=== PATIENT | female | born 1980 | race African-American/Black ===

== ENCOUNTER 2022-10-31 19:30 | Emergency (ER) | payer MEDICAID, OTHER ==
[~2022-10-31] VITALS: Ht 172.7 cm; Wt 89.0 kg
[~2022-10-31 19:30] MED LIST: DICL50TA9 PO; FLEXERIL; HYDR-4005 PO; NORCO; OMEP20CA14 PO; TOPUD
[2022-10-31 19:36] VITALS: BP 114/72
== END 2022-10-31 22:56 | disposition left against medical advice (07) ==
LOC: ER 19:30
DX: R53.1 Weakness (principal); Z53.21 Procedure and treatment not carried out due to patient leaving prior to being seen by health care provider
CPT/HCPCS: 99281

== ENCOUNTER 2023-01-31 08:07 | Emergency (ER) | payer OTHER ==
[~2023-01-31] VITALS: Ht 180.3 cm; Wt 88.6 kg
[2023-01-31 08:25] VITALS: BP 132/84; RESP 18; O2SAT 100
[2023-01-31 08:30] VITALS: PULSE 104
[2023-01-31 08:52] LABS: CHLORIDE 109 mEq/L (98-107)
[2023-01-31 08:53] LABS: BASOPHILS % 1.5 % (0.0-2.0); EOSINOPHILS % 4.6 % (0.0-5.0); HEMATOCRIT. 39.9 % (36.0-48.0); HEMOGLOBIN. 13.3 g/dL (12.0-16.0); LYMPHOCYTES % 38.8 % (20.0-50.0); MEAN CORPUSCULAR HEMOGLOBIN 28.5 pg (28.0-32.0); MEAN CORPUSCULAR VOLUME 85.4 fL (81.0-99.0); MEAN PLATELET VOLUME 7.1 fl (7.4-10.4); MONOCYTES % 9.7 % (2.0-8.0); NEUTROPHILS % 45.4 % (40.0-76.0); PLATELET 372 x1000/uL (130-400); RED BLOOD CELL COUNT 4.67 mill/uL (4.2-5.4); RED CELL DISTRIBUTION WIDTH 15.6 % (11.6-14.6)
[2023-01-31 15:13] LABS: BASOPHILS % 1.2 % (0.0-2.0); EOSINOPHILS % 3.5 % (0.0-5.0); HEMATOCRIT. 38.3 % (36.0-48.0); HEMOGLOBIN. 12.8 g/dL (12.0-16.0); LYMPHOCYTES % 46.7 % (20.0-50.0); MEAN CORPUSCULAR HEMOGLOBIN 28.8 pg (28.0-32.0); MEAN CORPUSCULAR VOLUME 86.4 fL (81.0-99.0); MEAN PLATELET VOLUME 6.9 fl (7.4-10.4); MONOCYTES % 8.1 % (2.0-8.0); NEUTROPHILS % 40.5 % (40.0-76.0); PLATELET 353 x1000/uL (130-400); RED BLOOD CELL COUNT 4.43 mill/uL (4.2-5.4); RED CELL DISTRIBUTION WIDTH 15.9 % (11.6-14.6)
[2023-01-31] MEDS ORDERED: PANTOPRAZOLE 40MG DR TABLET PO ONE (15:15)
[2023-01-31] MEDS ORDERED: MAGNESIUM/ALUMINUM HYDROXIDE/SIMETHICONE 30ML UDC PO ONE (15:15)
[2023-01-31 15:33] LABS: CHLORIDE 108 mEq/L (98-107)
[2023-01-31] MEDS ORDERED: ACETAMINOPHEN 325MG TABLET PO ONE (17:00)
[2023-01-31] MEDS ORDERED: ACET-2708 MT (17:25)
[2023-01-31] MEDS ORDERED: PANT40SU MT (17:25)
[2023-01-31] MEDS ORDERED: ACETAMINOPHEN 325MG TABLET PO NR (17:45)
[2023-01-31] MEDS ORDERED: PANTOPRAZOLE 40MG DR TABLET PO NR (17:45)
[2023-01-31] MEDS ORDERED: MAGNESIUM/ALUMINUM HYDROXIDE/SIMETHICONE 30ML UDC PO NR (17:45)
[2023-01-31 17:55] VITALS: TEMP 98.7
== END 2023-01-31 17:58 | disposition home or self-care (01) ==
LOC: ER 08:39
DX: K21.9 Gastro-esophageal reflux disease without esophagitis (principal); R07.89 Other chest pain; Z98.51 Tubal ligation status; Z79.899 Other long term (current) drug therapy
CPT/HCPCS: 36415; 71045; 80053; 83880; 84484; 85025; 85379; 93005; 99285

== ENCOUNTER 2025-07-11 13:19 | Emergency (ER) | payer MEDICAID, OTHER ==
[~2025-07-11] VITALS: Ht 180.3 cm; Wt 108.0 kg
[~2025-07-11 13:19] MED LIST changes: +ACET-2708 MT; +PANT40SU MT
[2025-07-11 13:28] VITALS: O2SAT 100
[2025-07-11 13:29] VITALS: BP 145/85; PULSE 89; RESP 16; TEMP 36.7; O2SAT 99
== END 2025-07-11 16:10 | disposition left against medical advice (07) ==
LOC: ER 13:19
DX: M25.562 Pain in left knee (principal); M19.90 Unspecified osteoarthritis, unspecified site
CPT/HCPCS: 99281